=== PATIENT | male | born 1965 | race Caucasian/White ===

== ENCOUNTER 2021-05-16 07:35 | Emergency (ER) | payer OTHER ==
[~2021-05-16 07:35] MED LIST: BENTYL 20MG TAB20 MG PO; OMEPRAZOLE20 M1 PO; ZINC50 M2 PO; ZOFRAN ODT4 MG PO
[2021-05-16 09:09] LABS: HEMOGLOBIN 14.9 gm/dl (14.0-17.5); RED BLOOD COUNT 4.95 M/UL (4.20-5.50); WHITE BLOOD COUNT 15.2 K/UL (4.5-11.0)
[2021-05-16 09:28] LABS: BUN/CREATININE RATIO 10 (0-10)
[2021-05-16] MEDS ORDERED: BACTRIM DS TAB1 EACH PO (11:10)
== END 2021-05-16 12:30 | disposition home or self-care (01) ==
LOC: ER1 07:35
PROVIDERS: Physician Assistant
DX: N39.0 Urinary tract infection, site not specified (principal); I10 Essential (primary) hypertension; Z87.442 Personal history of urinary calculi
CPT/HCPCS: 80053; 81001; 83690; 85025; 87077; 87086; 87186; 96374; 96375; 99284; J2270; J2405; Q9967

== ENCOUNTER 2022-05-13 11:30 | Emergency (ER) | payer OTHER ==
[~2022-05-13 11:30] MED LIST changes: +BACTRIM DS TAB1 EACH PO
[2022-05-13 12:33] LABS: HEMOGLOBIN 15.2 gm/dl (14.0-17.5); RED BLOOD COUNT 5.12 M/UL (4.20-5.50); WHITE BLOOD COUNT 7.4 K/UL (4.5-11.0)
[2022-05-13 12:55] LABS: BUN/CREATININE RATIO 11 (0-10)
== END 2022-05-13 14:44 | disposition home or self-care (01) ==
LOC: ER1 11:30
PROVIDERS: Physician Assistant
DX: R10.9 Unspecified abdominal pain (principal); R10.813 Right lower quadrant abdominal tenderness; R10.814 Left lower quadrant abdominal tenderness
CPT/HCPCS: 80053; 81001; 83690; 85025; 99284; Q9967